=== PATIENT | male | born 1960 | race Caucasian/White ===

== ENCOUNTER → 2021-05-12 | Day surgery (SDC) | payer OTHER ==
[~2021-05-12] VITALS: Ht 188 cm; Wt 120.2 kg
[~2021-05-12] MED LIST: 3IN1 COMMODE; AMLODIPINE BESY10 MG PO; ASPIRIN EC325 MG PO; ATORVASTATIN CA40 MG PO; CBD OIL SL; CLARITIN10 MG PO; CYCLOBENZAPRINE10 MG PO; CYMBALTA30 MG PO; DAILY VALUE1 EACH PO; FEOSOL325 MG PO; GABAPENTIN600 MG PO; LISINOPRIL-HCT1 EAC2 PO; METFORMIN HCL1000 MG PO; NEURONTIN300 MG PO; OXYCODON-ACETA1 EAC1 PO; SENOKOT8.6 MG PO; SEROQUEL 100MG100 MG PO
[2021-05-12 07:45] LABS: HCT 41.6 % (42.0-52.0); HGB 13.1 g/dl (13.2-18.0); MCH 30.9 pg (25.0-31.0); MCHC 31.5 g/dL (32.0-36.0); MCV 98.1 fL (78.0-100.0); MPV 10.3 fL (6.0-9.5); RBC 4.24 M/uL (4.70-6.00); RDW 12.7 % (11.5-14.0); WBC 8.9 K/uL (4.0-10.5)
[2021-05-12 07:55] LABS: ALBUMIN 3.4 g/dL (3.4-5.0); BILIRUBIN - TOTAL 0.7 mg/dL (0.2-1.0); BUN/CREAT RATIO (CALC) 17.9 RATIO; CREATININE 0.78 mg/dL (0.67-1.17); GLOBULIN (CALCULATION) 3.8 g/dL; POTASSIUM 4.1 mmol/L (3.5-5.1); TOTAL PROTEIN 7.2 g/dL (6.4-8.2)
== END | disposition home or self-care (01) ==
LOC: FAS 06:49
PROVIDERS: Surgery
DX: K58.0 Irritable bowel syndrome with diarrhea (principal); N40.2 Nodular prostate without lower urinary tract symptoms; E11.9 Type 2 diabetes mellitus without complications; I10 Essential (primary) hypertension; G47.30 Sleep apnea, unspecified; Z99.89 Dependence on other enabling machines and devices; Z88.5 Allergy status to narcotic agent; Z79.84 Long term (current) use of oral hypoglycemic drugs; Z79.891 Long term (current) use of opiate analgesic; Z79.899 Other long term (current) drug therapy
CPT/HCPCS: 36415; 80053; J0690; J1610; J2250; J2704; J7120